=== PATIENT | male | born 1980 | race Caucasian/White ===

== ENCOUNTER 2018-05-25 13:18 | Emergency (ER) | payer SELFPAY ==
[~2018-05-25] VITALS: Wt 110.0 kg
[2018-05-25 13:25] VITALS: BP 155/88; PULSE 101; RESP 18
[2018-05-25] MEDS ORDERED: HC30CR25 TOP (15:52)
[2018-05-25] MEDS ORDERED: CLOT45CR19 TOP (15:52)
--- NOTE | 2018-05-25 16:44 | ERD ---
ER Documentation Chief Complaint Chief Complaint PAIN FOLLOWING INTERCOURSE X 3 WEEKS HPI History of Present Illness: 37-year-old male with no past medical history coming in today with complaint of dysuria and penile pain. Patient reports symptoms have been present for approximately 3 weeks intermittently. Patient denies penile discharge. is currently and has been having recurrent vaginal candidiasis. Patient denies sexual relationships with anyone other than his . At home pharmacological/nonpharmacological treatment for symptoms: Denies Denies social concerns; Denies recent foreign travel ROS All systems reviewed and are negative except as per history of present illness. Medications Home Meds Active Scripts Hydrocortisone* Topical (Hydrocortisone* Topical) 2.5%-28.3 Gm Cream..g., 1 APPLIC TOP BID for INFLAMMATION/PAIN, #1 TUB APPLY ONLY A PEA SIZE AMOUNT; DO NOT USE MORE THAN THIS. APPLY TO RIM OF PENIS HEAD. Prov:NASRIN FROST NP 05/25/18 Clotrimazole* (Clotrimazole-7*) Vaginal Cream..g., 1 APPLIC TOP BID for YEAST INFECTION for 7 Days, EA APPLY TO ENTIRE PENIS HEAD, NOT ON THE URETHRA HOLE (PEE HOLE). APPLY TO PENIS SHAFT IF NEEDED. Prov:NASRIN FROST NP 05/25/18 Allergies Allergies: Coded Allergies: No Known Allergy (Unverified , 07/09/12) PMhx/Soc Medical and Surgical Hx: pt denies Medical Hx, pt denies Surgical Hx Hx Alcohol Use: No Hx Substance Use: No Hx Tobacco Use: No Smoking Status: Never smoker FmHx Family History: No diabetes, No coronary disease Physical Exam Vitals Vital Signs Date Temp Pulse Resp B/P (MAP) Pulse Ox O2 O2 Flow FiO2 Time Delivery Rate 05/25/18 98.1 101 18 155/88 99 13:25 (110) Physical Exam Const: No acute distress Head: Atraumatic Eyes: Normal Conjunctiva ENT: Normal External Ears, Nose and Mouth. Neck: Full range of motion. No meningismus. Resp: Clear to auscultation bilaterally Cardio: Regular rate and rhythm, no murmurs Abd: Soft, non tender, non distended. Normal bowel sounds Skin: No petechiae or rashes Back: No midline or flank tenderness Ext: No cyanosis, or edema Neur: Awake and alert Psych: Normal Mood and Affect : Mild erythema noted to around penile head, no discharge noted. No rashes noted. No vesicular areas of concern. Results 24 hrs Laboratory Tests Test 05/25/18 13:45 Urine Color YELLOW Urine Clarity CLEAR Urine pH 6.0 Urine Specific [place] 1.024 Urine Ketones NEGATIVE mg/dL Urine Nitrite NEGATIVE mg/dL Urine Bilirubin NEGATIVE mg/dL Urine Urobilinogen NEGATIVE mg/dL Urine Leukocyte Esterase NEGATIVE Jim/ul Urine Hemoglobin NEGATIVE mg/dL Urine Glucose NEGATIVE mg/dL Urine Total Protein NEGATIVE mg/dl Procedures/MDM ED course includes a thorough examination and history. Medications: -- Imaging: -- Labs: Urinalysis/gonorrhea chlamydia Low suspicion for life-threatening medical emergency. Low suspicion for infectious emergency that requires hospitalization or immediate surgical inter vention. Otherwise healthy patient presenting with constellation of symptoms likely representing uncomplicated balanitis as characterized by history, physical exam findings, lab findings. Urinalysis unremarkable. No respiratory distress, otherwise relatively well appearing and nontoxic. Patient educated on diagnoses, prescriptions, follow-up care, return precautions. Strict return precautions given for worsening condition; questions answered discharge. Disposition for discharge with followup in 2 days with PCP/clinic. Departure Diagnosis: Primary Impression: Balanitis Condition: Stable Patient Instructions: Balanitis Referrals: COMMUNITY CLINICS YOU HAVE RECEIVED A MEDICAL SCREENING EXAM AND THE RESULTS INDICATE THAT YOU DO NOT HAVE A CONDITION THAT REQUIRES URGENT TREATMENT IN THE EMERGENCY DEPARTMENT. FURTHER EVALUATION AND TREATMENT OF YOUR CONDITION CAN WAIT UNTIL YOU ARE SEEN IN YOUR DOCTORS OFFICE WITHIN THE NEXT 1-2 DAYS. IT IS YOUR RESPONSIBILITY TO MAKE AN APPOINTMENT FOR FOLOW-UP CARE. IF YOU HAVE A PRIMARY DOCTOR --you should call your primary doctor and schedule an appointment IF YOU DO NOT HAVE A PRIMARY DOCTOR YOU CAN CALL OUR PHYSICIAN REFERRAL HOTLINE AT IF YOU CAN NOT AFFORD TO SEE A PHYSICIAN YOU CAN CHOSE FROM THE FOLLOWING [facility] [address] [facility] [address] [facility] [address] [facility] [address] [facility] [address] [facility]. [facility]. [address] [facility]. [facility] YOU HAVE RECEIVED A MEDICAL SCREENING EXAM AND THE RESULTS INDICATE THAT YOU DO NOT HAVE A CONDITION THAT REQUIRES URGENT TREATMENT IN THE EMERGENCY DEPARTMENT. FURTHER EVALUATION AND TREATMENT OF YOUR CONDITION CAN WAIT UNTIL YOU ARE SEEN IN YOUR DOCTORS OFFICE WITHIN THE NEXT 1-2 DAYS. IT IS YOUR RESPONSIBILITY TO MAKE AN APPOINTMENT FOR FOLOW-UP CARE. IF YOU HAVE A PRIMARY DOCTOR --you should call your primary doctor and schedule and appointment IF YOU DO NOT HAVE A PRIMARY DOCTOR YOU CAN CALL OUR PHYSICIAN REFERRAL HOTLINE AT . IF YOU CAN NOT AFFORD TO SEE A PHYSICIAN YOU CAN CHOSE FROM THE FOLLOWING [facility] INSTITUTIONS: [facility] [address] [place] [address] [facility] [address] [place] [address] [facility] [address] [place] [address] Additional Instructions: Thank you very much for allowing us to participate in your care. Your health and safety is our top priority at [facility]. It is important to read all discharge instructions and education provided in your discharge packet. Call your primary care doctor TOMORROW for an appointment during the next 2-4 days and bring all the information and medications prescribed. Have prescriptions filled and follow precisely the directions on the label. -Clotrimazole is a antifungal cream. Use this medication twice daily for the next 7 days to clear up any yeast that is causing the inflammation. -Hydrocortisone is a steroid, which decreases inflammation; uses medication every morning and night to decrease inflammation/swelling/pain associated with your infection. Only apply a pea-sized amount. If the symptoms get worse and your provider is unavailable, return to the Emergency Department immediately. NASRIN FROST NP May 25, 2018 16:44
== END 2018-05-25 16:00 | disposition home or self-care (01) ==
LOC: FTE 13:18
DX: N48.1 Balanitis (principal)
CPT/HCPCS: 81003; 87591; 99283

== ENCOUNTER 2018-07-07 11:50 | Emergency (ER) | payer SELFPAY ==
[~2018-07-07] VITALS: Wt 89.0 kg
[~2018-07-07 11:50] MED LIST: CLOT45CR19 TOP; HC30CR25 TOP
[2018-07-07 11:56] VITALS: BP 131/75; PULSE 75; RESP 18
[2018-07-07] MEDS ORDERED: FLUC150T PO (13:41)
[2018-07-07] MEDS ORDERED: FLUCONAZOLE 150 MG TAB PO ONE (14:00)
--- NOTE | 2018-07-07 14:48 | ERD ---
ER Documentation Chief Complaint Chief Complaint foul odor urine, no pain HPI This is a 37-year-old sexually active male presents to the ED complaining of foul-smelling urine x1 month. He denies any urinary frequency, urgency, dysuria. Denies any flank pain. Denies any fevers or chills. Denies any abdominal pain. He states his was recently treated for BV and candidiasis. He also reports white penile discharge and pain at the tip of his penis. He denies any trauma. He denies any testicular swelling. States that he is sexually active with his only. Denies any STI exposure or history of STIs. He states he was given a prescription for topical antifungals but this has not helped his symptoms. ROS All systems reviewed and are negative except as per history of present illness. Medications Home Meds Active Scripts Fluconazole* (Diflucan*) 150 Mg Tablet, 150 MG PO ONCE, #1 TAB Prov:JAQUI IRAHETA PA-C 07/07/18 Hydrocortisone* Topical (Hydrocortisone* Topical) 2.5%-28.3 Gm Cream..g., 1 APPLIC TOP BID for INFLAMMATION/PAIN, #1 TUB APPLY ONLY A PEA SIZE AMOUNT; DO NOT USE MORE THAN THIS. APPLY TO RIM OF PENIS HEAD. Prov:NASRIN FROST NP 05/25/18 Clotrimazole* (Clotrimazole-7*) Vaginal Cream..g., 1 APPLIC TOP BID for YEAST INFECTION for 7 Days, EA APPLY TO ENTIRE PENIS HEAD, NOT ON THE URETHRA HOLE (PEE HOLE). APPLY TO PENIS SHAFT IF NEEDED. Prov:NASRIN FROST NP 05/25/18 Allergies Allergies: Coded Allergies: No Known Allergy (Unverified , 07/09/12) PMhx/Soc Medical and Surgical Hx: pt denies Medical Hx, pt denies Surgical Hx Hx Alcohol Use: No Hx Substance Use: No Hx Tobacco Use: No Smoking Status: Never smoker Physical Exam Vitals Vital Signs Date Temp Pulse Resp B/P (MAP) Pulse Ox O2 O2 Flow FiO2 Time Delivery Rate 07/07/18 98.2 75 18 131/75 99 11:56 (93) Physical Exam Const: No acute distress Head: Atraumatic Eyes: Normal Conjunctiva ENT: Normal External Ears, Nose and Mouth. Neck: Full range of motion. No meningismus. Abd: Soft, non tender, non distended. Normal bowel sounds Exam: pt deferred Skin: No petechiae or rashes Neur: Awake and alert Psych: Normal Mood and Affect Results 24 hrs Laboratory Tests Test 07/07/18 13:04 Urine Color YELLOW Urine Clarity CLEAR Urine pH 7.0 Urine Specific [place] 1.021 Urine Ketones NEGATIVE mg/dL Urine Nitrite NEGATIVE mg/dL Urine Bilirubin NEGATIVE mg/dL Urine Urobilinogen NEGATIVE mg/dL Urine Leukocyte Esterase NEGATIVE Jim/ul Urine Hemoglobin NEGATIVE mg/dL Urine Glucose NEGATIVE mg/dL Urine Total Protein NEGATIVE mg/dl Current Medications Medications Dose Sig/Steve Start Time Status Last (Trade) Ordered Route PRN Stop Time Admin Dose Reason Admin Fluconazole 150 mg ONCE ONCE 07/07/18 DC 07/07/18 (Diflucan) PO 14:00 07/07/18 14:37 14:01 Procedures/MDM LABS & DIAGNOSTIC IMAGING: Urine: no e/o acute infection or hematuria ED COURSE: The patient was given p.o. fluconazole The medication was well tolerated and the patient had market improvement in symptoms. The patient remained stable throughout ED course. MEDICAL DECISION MAKIN-year-old male presents with foul-smelling urine. His UA is negative for any infection or hematuria. I offered scrotal ultrasound but patient deferred. He failed topical therapy for balanitis therefore we will provide a trial of oral antifungals. Patient was given a dose of fluconazole here and provided rx for same. I have low suspicion for epididymitis, testicular torsion, or STIs. Recommended follow up with PCP in 1 week. Strict return return precautions given. PRESCRIPTIONS: Fluconazole SPECIALIST FOLLOW UP RECOMMENDED: None Patient has been advised to follow up with primary care in 1-2 days. Departure Diagnosis: Primary Impression: Genitourinary symptoms Condition: Stable Patient Instructions: Balanitis, Fluconazole Oral tablet Referrals: COMMUNITY CLINICS YOU HAVE RECEIVED A MEDICAL SCREENING EXAM AND THE RESULTS INDICATE THAT YOU DO NOT HAVE A CONDITION THAT REQUIRES URGENT TREATMENT IN THE EMERGENCY DEPARTMENT. FURTHER EVALUATION AND TREATMENT OF YOUR CONDITION CAN WAIT UNTIL YOU ARE SEEN IN YOUR DOCTORS OFFICE WITHIN THE NEXT 1-2 DAYS. IT IS YOUR RESPONSIBILITY TO MAKE AN APPOINTMENT FOR FOLOW-UP CARE. IF YOU HAVE A PRIMARY DOCTOR --you should call your primary doctor and schedule an appointment IF YOU DO NOT HAVE A PRIMARY DOCTOR YOU CAN CALL OUR PHYSICIAN REFERRAL HOTLINE AT IF YOU CAN NOT AFFORD TO SEE A PHYSICIAN YOU CAN CHOSE FROM THE FOLLOWING [facility] CLINICS [facility] [address] [place] [facility] [address] [facility] [address] [facility] [address] [facility] [address] [facility]. [facility]. [address] [facility] [facility] YOU HAVE RECEIVED A MEDICAL SCREENING EXAM AND THE RESULTS INDICATE THAT YOU DO NOT HAVE A CONDITION THAT REQUIRES URGENT TREATMENT IN THE EMERGENCY DEPARTMENT. FURTHER EVALUATION AND TREATMENT OF YOUR CONDITION CAN WAIT UNTIL YOU ARE SEEN IN YOUR DOCTORS OFFICE WITHIN THE NEXT 1-2 DAYS. IT IS YOUR RESPONSIBILITY TO MAKE AN APPOINTMENT FOR FOLOW-UP CARE. IF YOU HAVE A PRIMARY DOCTOR --you should call your primary doctor and schedule and appointment IF YOU DO NOT HAVE A PRIMARY DOCTOR YOU CAN CALL OUR PHYSICIAN REFERRAL HOTLINE AT . IF YOU CAN NOT AFFORD TO SEE A PHYSICIAN YOU CAN CHOSE FROM THE FOLLOWING [facility]: [facility] [address] [place] [address] [facility] [address] [place] [address] [facility] [address] [place] [address] [facility] URGENT CARE/SPECIALTIES Additional Instructions: You can take this medication 3 days after today if you continue to have symptoms. Use proper hygiene techniques. See your doctor at your clinic in 1 week. Return here for any worsening pain, fevers, chills, nausea, vomiting or any other symptoms. JAQUI IRAHETA PA-C Jul 07, 2018 14:48
== END 2018-07-07 14:40 | disposition home or self-care (01) ==
LOC: FTE 11:50
DX: R82.90 Unspecified abnormal findings in urine (principal)
CPT/HCPCS: 81003; 99283